=== PATIENT | male | born 1960 | race Caucasian/White ===

== ENCOUNTER 2017-06-22 12:36 | Inpatient (IN) | payer OTHER ==
[~2017-06-22] VITALS: Ht 154.9 cm; Wt 59.9 kg
[2017-06-22 14:00] VITALS: BP 131/83; RESP 18
[2017-06-22 14:07] VITALS: Ht 154.9 cm; Wt 59.9 kg
--- NOTE | 2017-06-22 15:06 | HP ---
Date/Time of Note Date/Time of Note DATE: 06/22/17 TIME: 15:06 Assessment/Plan VTE Prophylaxis VTE Prophylaxis Intervention: SCD's Lines/Catheters IV Catheter Type (from Nrsg): Saline Lock Assessment/Plan Assessment/Plan 1. RUQ pain secondary to ?acalculous cholecystitis - US showed thickened gallbladder wall 9mm without presence of stones - Will consult Surgery for further evaluation - HIDA scan ordered with CCK. Will not be able to be performed until tmrw per nuclear medicine - Blood cultures drawn and will start Zosyn following BC - Zofran PRN nausea - Pain control - IVF and will keep NPO after midnight for HIDA scan 2. Transaminitis - May be secondary to dehydration - Will continue to monitor 3. Constipation - Will give stool softeners and monitor for BM 4. Tobacco abuse - Patient states has not smoked in 2 weeks but usually 1/2 ppd 5. Diet - clears - NPO after midnight 6. GI ppx - PPI 7. DVT ppx - SCD 8. Code status - Full 9. Disposition - Admit to med/surg for further evaluation HPI/ROS Admit Date/Time Admit Date/Time Jun 22, 2017 at 13:30 Hx of Present Illness 56 yo M with no significant past medical history presented to [place] [facility] due to abdominal pain for the past 4 days. Patients states he has been experiencing moderate RUQ pain that radiates to epigastric area with associated nausea with no vomiting. Patient states when pain is severe experiences shortness of breath but normally does not have any respiratory issues. Has also had diminished appetite and lost 3 lbs in 4 days. C/o constipation as well for the past 4 days but usually has regular bowel movements. US RUQ performed at [place] showed thickened gallbladder without stones without Ramirez sign as well. Denies any dizziness, headache, vomiting, chest pain, diarrhea, or past history of abdominal issues. ROS Constitutional: fatigue, nausea, poor po, weight change, No diaphoresis, No febrile Eyes: no complaints ENT: no complaints Respiratory: shortness of breath (with abdominal pain), No cough, No sputum, No wheezing Cardiovascular: No chest pain, No edema, No lightheadedness, No palpitations Gastrointestinal: constipation, decreased appetite, nausea, pain, No blood, No diarrhea, No vomiting Genitourinary: no complaints Musculoskeletal: no complaints Skin: No erythema, No pruritis, No rash Neurologic: no complaints Endocrine: no complaints Lymphatic: no complaints Psychological: no complaints Immunologic: no complaints PMH/Family/Social Past Medical History Medical History: no pertinent history Past Surgical History Past Surgical Hx: no surgical history Family History Significant Family History: no pertinent family hx Social History Alcohol Use: none Smoking Status: Current every day smoker Drug Use: none Exam/Review of Systems Vital Signs Vitals Vital Signs Date Time Temp Pulse Resp B/P Pulse Ox O2 Delivery O2 Flow Rate FiO2 06/22/17 14:00 97.5 101 18 131/83 95 Exam Constitutional: alert, oriented, well developed Psych: nl mood/affect Head: atraumatic, normocephalic Eyes: EOMI, PERRL, nl sclera ENMT: mucosa pink and moist Neck: non-tender, supple Respiratory: clear to auscultation, No crackles/rales, No wheezing Cardiovascular: regular rate and rhythm, No diastolic murmur, No edema, No murmurs/extra sounds, No systolic murmur Gastrointestinal: bowel sounds, nl liver, spleen, soft, tender (RUQ with deep palpation, epigastric area), No ascites, No distended, No rebound or guarding Genitourinary - Male: No CVA tenderness, No discharge Musculoskeletal: nl extremities to inspection Extremities: normal pulses, No cyanosis, No edema Neurological: HEALTH COACH II-XII intact, nl mental status, nl speech, nl strength Skin: other (skin tenting) Lymph: nl lymph nodes Medications Medications No home medications Procedures Procedures US Abdomen- Thickened gallbladder wall without evidence of stones and with a negative sonographic ramirez sign. rule out acalculous cholecystitis with HIDA. Right pleural effusion LABS from [facility] WBC 7.6 Hgb 13 Hct 41 Plt 128 Na 138 K 4.7 Cl 103 Co2 22 BUN 31 Cr 1.04 Glu 121 Tbil 0.8 Alk phos 103 AST 56 ALT 77 JAREN SOUZA MD Jun 22, 2017 15:06
[2017-06-22] MEDS ORDERED: MAGNESIUM HYDROXIDE 30ML CUP PO PRN (15:30)
[2017-06-22] MEDS ORDERED: ONDANSETRON 4 MG INJ IV PRN (15:30)
[2017-06-22] MEDS ORDERED: morphine 2 MG INJ IV PRN (15:30)
[2017-06-22] MEDS ORDERED: HYDROCODONE/APAP (5/325) TAB PO PRN (15:30)
[2017-06-22] MEDS ORDERED: NACL 0.9% 3 ML SYG IV SCH (15:30)
[2017-06-22] MEDS ORDERED: DOCUSATE SODIUM 100 MG CAP PO PRN (15:30)
[2017-06-22] MEDS ORDERED: ACETAMINOPHEN 325 MG TAB PO PRN (15:30)
[2017-06-22] MEDS: SOD CHLORIDE 0.9% 1,000 ML IV SCH (16:31)
--- NOTE | 2017-06-22 17:26 | CONS ---
Date/Time of Note Date/Time of Note DATE: 06/22/17 TIME: 17:23 Assessment/Plan Assessment/Plan Additional Assessment/Plan Possible acalculous cholecystitis CCK HIDA scan has been ordered and will be performed tomorrow Further recommendations will be forthcoming and based on the patient's further workup and clinical course. Consultation Date/Type/Reason Admit Date/Time Jun 22, 2017 at 13:30 Date of Consultation: Jun 22, 2017 Reason for Consultation Possible acalculous cholecystitis Hx of Present Illness The patient is an otherwise healthy 56-year-old male with no familial history of gallbladder disease. He is admitted with 3-4 day history of intermittent midepigastric and right upper quadrant abdominal pain and abdominal ultrasound performed in [place] showed a thickened gallbladder wall but without gallstones or pericholecystic fluid. HIDA scan was recommended. The patient is transferred here for continuance of care. He has had no fevers or chills. He states that his abdominal pain has completely resolved. Constitutional: no complaints Eyes: no complaints ENT: no complaints Respiratory: no complaints, shortness of breath (with abdominal pain), No cough, No sputum, No wheezing Cardiovascular: no complaints, No chest pain, No edema, No lightheadedness, No palpitations Gastrointestinal: constipation, decreased appetite, nausea, no complaints, pain , No blood, No diarrhea, No vomiting Genitourinary: no complaints Musculoskeletal: no complaints Skin: No erythema, No pruritis, No rash Neurologic: no complaints Lymphatic: no complaints Psychological: nl mood/affect, no complaints Immunologic: no complaints Past Medical History Medical History: no pertinent history Past Surgical History Past Surgical Hx: no surgical history Family History Significant Family History: no pertinent family hx Social History Alcohol Use: none Smoking Status: Current every day smoker Drug Use: none Exam/Review of Systems Vital Signs Vitals Vital Signs Date Time Temp Pulse Resp B/P Pulse Ox O2 Delivery O2 Flow Rate FiO2 06/22/17 14:00 97.5 101 18 131/83 95 Exam Constitutional: alert, oriented Psych: no complaints Head: normocephalic Eyes: nl conjunctiva ENMT: nl external ears & nose Neck: supple Respiratory: clear to auscultation Cardiovascular: regular rate and rhythm Gastrointestinal: soft Genitourinary - Male: nl penis Musculoskeletal: nl extremities to inspection Extremities: normal pulses Neurological: FINANCE ASSISTANT II-XII intact Skin: nl turgor Lymph: nl lymph nodes Medications Medications Current Medications Sodium Chloride (NS) 1,000 ml @ 100 mls/hr Q10H IV Last administered on t 16:31; Admin Dose 100 MLS/HR; Start 06/22/17 at 15:27 Ondansetron HCl (Zofran Inj) 4 mg Q6H PRN IV NAUSEA AND/OR VOMITING; Start at 15:30 Acetaminophen (Tylenol Tab) 650 mg Q6H PRN PO PAIN LEVEL 1-3 OR FEVER; Start 06/22/17 at 15:30 Acetaminophen/ Hydrocodone Bitart ([place] (5/325)) 1 tab Q6H PRN PO MODERATE PAIN LEVEL 4-6; Start 06/22/17 at 15:30 Morphine Sulfate (morphine) 2 mg Q4H PRN IV SEVERE PAIN LEVEL 7-10; Start at 15:30 Docusate Sodium (Colace) 100 mg Q12H PRN PO CONSTIPATION; Start 06/22/17 at 15 :30 Magnesium Hydroxide (Milk Of Mag) 30 ml DAILY PRN PO CONSTIPATION; Start 06/22 at 15:30 Pantoprazole 40 mg 40 mg DAILY@06 PO ; Start 06/23/17 at 06:00 Piperacillin Sod/ Tazobactam Sod (Zosyn 3.375gm/ 100 ml (Pmx)) 100 ml @ 200 mls /hr Q6 IVPB ; Start 06/22/17 at 18:00 ROSE RADFORD MD Jun 22, 2017 17:26
[2017-06-22] MEDS: PIPER-TAZO 3.375 GM IV (PMX) 100 ML IVPB SCH ×2 (18:31→23:22)
[2017-06-22 19:51] VITALS: BP 135/89; RESP 18
[2017-06-23] MEDS: SOD CHLORIDE 0.9% 1,000 ML IV SCH ×4 (01:27→17:34)
[2017-06-23 01:57] VITALS: BP 109/66; RESP 18
[2017-06-23] MEDS: PIPER-TAZO 3.375 GM IV (PMX) 100 ML IVPB SCH ×4 (05:21→23:39)
[2017-06-23] MEDS: PANTOPRAZOLE (EC) 40 MG TAB PO SCH ×2 (05:21→06:00)
[2017-06-23 07:18] VITALS: BP 131/87; RESP 18
--- NOTE | 2017-06-23 12:36 | PN ---
Date/Time of Note Date/Time of Note DATE: 06/23/17 TIME: 12:28 Assessment/Plan VTE Prophylaxis VTE Prophylaxis Intervention: SCD's Lines/Catheters IV Catheter Type (from Nrsg): Peripheral IV Assessment/Plan Assessment/Plan 1. Abdominal pain, consider acalculous cholecystitis, on antibiotics, protonix follow up with surgeon Dr. Hill 2. Mild transaminitis, follow up with LFTs 3. DVT prophylaxis: SCD Exam/Review of Systems Vital Signs Vitals Vital Signs Date Time Temp Pulse Resp B/P Pulse Ox O2 Delivery O2 Flow Rate FiO2 06/23/17 07:18 98.1 89 18 131/87 91 Intake and Output 06/22/17 06/22/17 06/23/17 15:00 23:00 07:00 Intake Total 250 ml 1340 ml Output Total 150 ml Balance 250 ml 1190 ml Exam Constitutional: alert, oriented, well developed Psych: nl mood/affect, no complaints Head: atraumatic, normocephalic Eyes: EOMI, nl conjunctiva, nl lids ENMT: nl external ears & nose, nl lips & teeth, nl nasal mucosa & septum Neck: non-tender, supple Respiratory: clear to auscultation, normal air movement, No congested cough, No crackles/rales, No diminished breath sounds, No intercostal retraction, No labored breathing, No other, No respirations, No tactile fremitus, No wheezing Cardiovascular: nl pulses, regular rate and rhythm, No S3, No S4, No bruits, No diastolic murmur, No edema, No gallop, No irregular rhythm, No jugular venous distention (JVD), No murmurs/extra sounds, No other, No rub, No systolic murmur Gastrointestinal: nl liver, spleen, other (epigastric tenderness), soft Musculoskeletal: nl extremities to inspection Extremities: normal pulses, No calf tenderness, No clubbing, No cyanosis, No edema, No other, No palpable cord, No pitting pedal edema, No tenderness Neurological: OUTSIDE SALES ACCOUNT EXECUTIVE II-XII intact, nl mental status, nl speech Skin: nl turgor Lymph: nl lymph nodes Results Result Diagram: 06/23/17 0552 06/23/17 0552 Results 24 hrs Laboratory Tests Test 06/23/17 05:52 White Blood Count 7.4 Red Blood Count 5.06 Hemoglobin 11.8 L Hematocrit 37.7 L Mean Corpuscular Volume 74.5 L Mean Corpuscular Hemoglobin 23.3 L Mean Corpuscular Hemoglobin Concent 31.3 L Red Cell Distribution Width 14.5 Platelet Count 127 L Mean Platelet Volume 11.4 H Neutrophils % 52.0 Lymphocytes % 30.1 Monocytes % 15.7 H Eosinophils % 0.9 Basophils % 0.9 Nucleated Red Blood Cells % 0.0 Neutrophils # 3.9 Lymphocytes # 2.2 Monocytes # 1.2 H Eosinophils # 0.1 Basophils # 0.1 Nucleated Red Blood Cells # 0.0 Sodium Level 139 Potassium Level 4.4 Chloride Level 110 Carbon Dioxide Level 21 Anion Gap 12 Blood Urea Nitrogen 28 H Creatinine 1.20 Glucose Level 68 L Calcium Level 8.0 L Magnesium Level 1.8 Total Bilirubin 1.1 Direct Bilirubin 0.00 Indirect Bilirubin 1.1 Aspartate Amino Transf (AST/SGOT) 67 H Alanine Aminotransferase (ALT/SGPT) 106 H Alkaline Phosphatase 84 Total Protein 5.8 L Albumin 2.9 L Globulin 2.90 Albumin/Globulin Ratio 1.00 Thyroid Stimulating Hormone (TSH) 0.857 Medications Medications Current Medications Sodium Chloride (NS) 1,000 ml @ 100 mls/hr Q10H IV Last administered on t 03:25; Admin Dose 100 MLS/HR; Start 06/22/17 at 15:27 Ondansetron HCl (Zofran Inj) 4 mg Q6H PRN IV NAUSEA AND/OR VOMITING; Start at 15:30 Acetaminophen (Tylenol Tab) 650 mg Q6H PRN PO PAIN LEVEL 1-3 OR FEVER; Start 06/22/17 at 15:30 Acetaminophen/ Hydrocodone Bitart ([place] (5/325)) 1 tab Q6H PRN PO MODERATE PAIN LEVEL 4-6; Start 06/22/17 at 15:30 Morphine Sulfate (morphine) 2 mg Q4H PRN IV SEVERE PAIN LEVEL 7-10; Start at 15:30 Docusate Sodium (Colace) 100 mg Q12H PRN PO CONSTIPATION; Start 06/22/17 at 15 :30 Magnesium Hydroxide (Milk Of Mag) 30 ml DAILY PRN PO CONSTIPATION; Start 06/22 at 15:30 Pantoprazole 40 mg 40 mg DAILY@06 PO ; Start 06/23/17 at 06:00 Piperacillin Sod/ Tazobactam Sod (Zosyn 3.375gm/ 100 ml (Pmx)) 100 ml @ 200 mls /hr Q6 IVPB Last administered on 06/23/17t 12:04; Admin Dose 200 MLS/HR; Start 06/22/17 at 18:00 RADHA VALENTIN MD Jun 23, 2017 12:36
[2017-06-23 13:45] VITALS: BP 125/80; RESP 18
--- NOTE | 2017-06-23 14:16 | PN ---
Date/Time of Note Date/Time of Note DATE: 06/23/17 TIME: 14:15 Assessment/Plan Lines/Catheters IV [facility] Type (from [facility]): Peripheral IV Assessment/Plan Chief Complaint/Hosp Course The patient is an otherwise healthy 56-year-old male with no familial history of gallbladder disease. He is admitted with 3-4 day history of intermittent midepigastric and right upper quadrant abdominal pain and abdominal ultrasound performed in [place] showed a thickened gallbladder wall but without gallstones or pericholecystic fluid. HIDA scan was recommended. The patient is transferred here for continuance of care. He has had no fevers or chills. He states that his abdominal pain has completely resolved. Problems: Assessment/Plan Abdominal examination is benign Awaiting CCK HIDA scan Subjective 24 Hr Interval Summary Patient continues to be asymptomatic without leukocytosis Exam/Review of Systems Vital Signs Vitals Vital Signs Date Time Temp Pulse Resp B/P Pulse Ox O2 Delivery O2 Flow Rate FiO2 06/23/17 13:45 98.3 90 18 125/80 97 Intake and Output 06/22/17 06/22/17 06/23/17 15:00 23:00 07:00 Intake Total 250 ml 1340 ml Output Total 150 ml Balance 250 ml 1190 ml Results Result Diagram: 06/23/17 0552 06/23/17 0552 ROSE RADFORD MD Jun 23, 2017 14:16
--- NOTE | 2017-06-23 16:29 | RADRPT ---
PROCEDURE: HIDA scan CLINICAL INDICATION: 56 -year-old patient complaining of abdominal pain. TECHNIQUE: Following the intravenous injection of 8.1 mCi of Tc-99m mebrofenin, multiple images of the abdomen were obtained up to 60-minutes post injection. COMPARISON: No prior HIDA scans. FINDINGS: The liver is promptly visualized, demonstrates homogeneous distribution of radionuclide. There is visualization of the common bile duct, gallbladder and gastrointestinal activity within nor mal time. IMPRESSION: No scintigraphic evidence to suggest the presence of common bile or cystic ducts obstruction. RPTAT: HH Physician Bernarda Date Time Electronically viewed and signed by Physician Bernarda on 06/23/2017 16:28 /
[2017-06-23 19:55] VITALS: BP 121/88; RESP 20
[2017-06-24 01:22] VITALS: BP 130/87; RESP 20
[2017-06-24] MEDS: SOD CHLORIDE 0.9% 1,000 ML IV SCH (05:30)
[2017-06-24] MEDS: PIPER-TAZO 3.375 GM IV (PMX) 100 ML IVPB SCH (05:30)
[2017-06-24] MEDS: PANTOPRAZOLE (EC) 40 MG TAB PO SCH (05:30)
[2017-06-24 07:31] VITALS: BP 145/96; RESP 20
--- NOTE | 2017-06-24 07:34 | PN ---
Date/Time of Note Date/Time of Note DATE: 06/24/17 TIME: 07:33 Assessment/Plan Lines/Catheters IV C[facility]ter Type (from [facility]): Peripheral IV Assessment/Plan Chief Complaint/Hosp Course The patient is an otherwise healthy 56-year-old male with no familial history of gallbladder disease. He is admitted with 3-4 day history of intermittent midepigastric and right upper quadrant abdominal pain and abdominal ultrasound performed in [place] showed a thickened gallbladder wall but without gallstones or pericholecystic fluid. HIDA scan was recommended. The patient is transferred here for continuance of care. He has had no fevers or chills. He states that his abdominal pain has completely resolved. Problems: Assessment/Plan HIDA scan was performed yesterday but without CCK, was normal Plan: Regular diet. Can discharge Subjective 24 Hr Interval Summary Patient remains asymptomatic with benign abdominal examination Exam/Review of Systems Vital Signs Vitals Vital Signs Date Time Temp Pulse Resp B/P Pulse Ox O2 Delivery O2 Flow Rate FiO2 06/24/17 07:31 98.1 86 20 145/96 98 Intake and Output 06/23/17 06/23/17 06/24/17 15:00 23:00 07:00 Intake Total 710 ml 200 ml 1200 ml Output Total 22 ml 400 ml Balance 710 ml 178 ml 800 ml Results Result Diagram: 06/24/17 0506 06/24/17 0506 ROSE RADFORD MD Jun 24, 2017 07:34
--- NOTE | 2017-06-24 11:56 | PDOCDIS ---
Discharge Instructions CONDITION Patient Condition: Good HOME CARE INSTRUCTIONS: Special Diet: regular diet- low fat ACTIVITY: Activity Restrictions: Slowly Increase Activity Rest between Activity Avoid heavy lifting Avoid Heavy Housework FOLLOW UP/APPOINTMENTS Follow-up Plan Follow up with his own PMD through HMO insurance in 1- 2 week after discharge CORDELIA ALATORRE MD Jun 24, 2017 11:56
[2017-06-24] MEDS ORDERED: IBUP-1542 PO (11:57)
[2017-06-24] MEDS ORDERED: FAMO-96 PO (11:57)
[2017-06-24] MEDS ORDERED: METO10TA92 PO (11:57)
[2017-06-24 12:53] VITALS: BP 130/87; RESP 16
[2017-06-24] MEDS ORDERED: PIPER-TAZO 3.375 GM IV (PMX) 50 ML IVPB SCH (18:00)
--- NOTE | 2017-06-25 09:41 | DS ---
Date/Time of Note Date/Time of Note DATE: 06/25/17 TIME: 09:41 Discharge Summary Admission/Discharge Info Admit Date/Time Jun 22, 2017 at 13:30 Discharge Date/Time Jun 24, 2017 at 17:00 Hx of Present Illness 56 yo M with no significant past medical history presented to [place] [facility] due to abdominal pain for the past 4 days. Patients states he has been experiencing moderate RUQ pain that radiates to epigastric area with associated nausea with no vomiting. Patient states when pain is severe experiences shortness of breath but normally does not have any respiratory issues. Has also had diminished appetite and lost 3 lbs in 4 days. C/o constipation as well for the past 4 days but usually has regular bowel movements. US RUQ performed at [place] showed thickened gallbladder without stones without Ramirez sign as well. Denies any dizziness, headache, vomiting, chest pain, diarrhea, or past history of abdominal issues. Hospital Course The patient is an otherwise healthy 56-year-old male with no familial history of gallbladder disease. He is admitted with 3-4 day history of intermittent midepigastric and right upper quadrant abdominal pain and abdominal ultrasound performed in [place] showed a thickened gallbladder wall but without gallstones or pericholecystic fluid. HIDA scan was recommended. The patient is transferred here for continuance of care. He has had no fevers or chills. He states that his abdominal pain has completely resolved. Home Meds Active Scripts Famotidine* (Pepcid*) 20 Mg Tablet, 20 MG PO BID, #60 TAB Prov:CORDELIA ALATORRE MD 06/24/17 Metoclopramide* (Reglan*) 10 Mg Tablet, 10 MG PO Q6H Y for NAUSEA AND OR VOMITING, #30 TAB Prov:CORDELIA ALATORRE MD 06/24/17 Ibuprofen* (Ibuprofen*) 600 Mg Tablet, 600 MG PO Q6 for pain, fever, #30 TAB Prov:CORDELIA ALATORRE MD 06/24/17 Follow-up Plan Follow up with his own PMD through HMO insurance in 1- 2 week after discharge Primary Care Provider Not On Staff Doctor CORDELIA ALATORRE MD Jun 25, 2017 09:41
== END 2017-06-24 17:00 | disposition home or self-care (01) | DRG 446 ==
LOC: MS2 13:30
PROVIDERS: ADMIT Internal Medicine; ATTEND Internal Medicine
DX: K81.9 Cholecystitis, unspecified (principal); F17.200 Nicotine dependence, unspecified, uncomplicated; R74.0 Nonspecific elevation of levels of transaminase and lactic acid dehydrogenase [LDH]; K82.9 Disease of gallbladder, unspecified; K59.00 Constipation, unspecified
CPT/HCPCS: 78226; 80053; 80069; 83735; 84443; 85025; 87040; A9537; J2543; J7030

== ENCOUNTER 2017-07-02 21:24 | Inpatient (IN) | payer OTHER ==
[~2017-07-02] VITALS: Ht 162.6 cm; Wt 61.8 kg
[~2017-07-02 21:24] MED LIST: FAMO-96 PO; IBUP-1542 PO; METO10TA92 PO
[2017-07-02 21:34] VITALS: Ht 162.6 cm; Wt 61.8 kg
[2017-07-02] MEDS ORDERED: ASPIRIN 325 MG TAB PO STA (21:58)
[2017-07-02 22:25] LABS: ABNORMAL IP MESSAGE 1; BASOPHIL # 0.1 10^3/ul (0.0-0.1); BASOPHILS % 0.5 % (0.0-2.0); EOSINOPHILS # 0.1 10^3/ul (0.0-0.5); EOSINOPHILS % 0.5 % (0.0-7.0); HEMATOCRIT 39.8 % (42.0-52.0); HEMOGLOBIN 12.9 g/dl (14.0-18.0); LYMPHOCYTES # 2.7 10^3/ul (0.8-2.9); LYMPHOCYTES % 27.3 % (15.0-51.0); MEAN CORPUSCULAR HEMOGLOBIN 23.6 pg (29.0-33.0); MEAN CORPUSCULAR HGB CONC 32.4 g/dl (32.0-37.0); MEAN CORPUSCULAR VOLUME 72.8 fl (82.0-101.0); MONOCYTE # 1.8 10^3/ul (0.3-0.9); MONOCYTES % 18.1 % (0.0-11.0); NEUTROPHIL # 5.2 10^3/ul (1.6-7.5); NEUTROPHILS % 53.4 % (39.0-77.0); NUCLEATED RED BLOOD CELLS # 0.1 10^3/ul (0.0-0.0); NUCLEATED RED BLOOD CELLS% 0.5 /100WBC (0.0-0.0); PLATELET COUNT 104 10^3/UL (140-415); POSITIVE DIFF @See below; RED BLOOD COUNT 5.47 10^6/ul (4.70-6.10); RED CELL DISTRIBUTION WIDTH 13.8 % (11.5-14.5); WHITE BLOOD COUNT 9.8 10^3/ul (4.8-10.8)
--- NOTE | 2017-07-02 22:25 | RADRPT ---
PROCEDURE: XR Chest. CLINICAL INDICATION: Chest pain, shortness of breath, cough. TECHNIQUE: Single frontal view of the chest was obtained COMPARISON: None FINDINGS: There is cardiomegaly. Aortic calcifications are present. The lungs are clear with no focal consolidations, pleural effusions, or pneumothorax. The osseous structures are grossly unremarkable. IMPRESSION: 1. Cardiomegaly with no acute cardiopulmonary disease. RPTAT:AAJJ Physician Nicko Date Time Electronically viewed and signed by Tayler Perez Physician on 07/02/2017 22:24 QL/
[2017-07-02 22:54] LABS: CALCIUM 8.3 mg/dl (8.4-10.2); CREATININE 1.25 mg/dl (0.61-1.24); POTASSIUM 5.2 mmol/L (3.5-5.1)
[2017-07-02 23:05] LABS: TROPONIN-I 0.024 ng/ml (0.00-0.12)
[2017-07-03] VITALS (12 sets, daily range): BP systolic 128–136; BP diastolic 70–92; PULSE 82–102; RESP 18; TEMP 98.3
[2017-07-03] MEDS ORDERED: ONDANSETRON 4 MG INJ IV PRN (01:00)
[2017-07-03] MEDS ORDERED: ACETAMINOPHEN 325 MG TAB PO PRN (01:00)
[2017-07-03] MEDS ORDERED: FUROSEMIDE 40 MG INJ IV ONE (01:00)
--- NOTE | 2017-07-03 01:37 | ERD ---
ER Documentation Chief Complaint Chief Complaint SOB and CP for 4 days, denies medical problem HPI 56-year-old male presents with increasing shortness of breath on exertion for the last 4 days but is now shortness of breath at rest as well. He had chest pain yesterday on the left side of his chest for a few hours which is now resolved. Denies having any other medical problems. Denies fever chills and cough. ROS All systems reviewed and are negative except as per history of present illness. Medications Home Meds Discontinued Scripts Famotidine* (Pepcid*) 20 Mg Tablet, 20 MG PO BID, #60 TAB Prov:CORDELIA ALATORRE MD 06/24/17 Metoclopramide* (Reglan*) 10 Mg Tablet, 10 MG PO Q6H Y for NAUSEA AND OR VOMITING, #30 TAB Prov:CORDELIA ALATORRE MD 06/24/17 Ibuprofen* (Ibuprofen*) 600 Mg Tablet, 600 MG PO Q6 for pain, fever, #30 TAB Prov:CORDELIA ALATORRE MD 06/24/17 Allergies Allergies: Coded Allergies: No Known Allergy (Unverified , 07/02/17) PMhx/Soc History of Surgery: No Anesthesia Reaction: No (unknown) Hx Neurological Disorder: No Hx Respiratory Disorders: No Hx Cardiac Disorders: No Hx Psychiatric Problems: No Hx Miscellaneous Medical Probl: No Hx Alcohol Use: No Hx Substance Use: No Hx Tobacco Use: Yes Smoking Status: Current every day smoker Physical Exam Vitals Vital Signs Date Time Temp Pulse Resp B/P Pulse Ox O2 Delivery O2 Flow Rate FiO2 07/02/17 22:00 98.3 100 20 135/95 99 Room Air 07/02/17 21:34 98.3 99 20 125/91 99 Physical Exam Const: [] Mild distress, appears uncomfortable and short of breath Head: Atraumatic Eyes: Normal Conjunctiva ENT: Normal External Ears, Nose and Mouth. Neck: Full range of motion..~ No meningismus. Resp: Clear to auscultation bilaterally every appears to have very mild labored work of breathing Cardio: Regular rate and rhythm, no murmurs Abd: Soft, non tender, non distended. Normal bowel sounds Skin: No petechiae or rashes Back: No midline or flank tenderness Ext: No cyanosis, 1+ pitting edema bilateral ankles and shins, distal pulses intact Neur: Awake and alert 3, no focal deficits Psych: Normal Mood and Affect Result Diagram: 07/02/17220407/02/172204 Results 24 hrs Laboratory Tests Test 07/02/17 22:05 White Blood Count 9.810^3/ul Red Blood Count 5.4710^6/ul Hemoglobin 12.9g/dl Hematocrit 39.8% Mean Corpuscular Volume 72.8fl Mean Corpuscular Hemoglobin 23.6pg Mean Corpuscular Hemoglobin Concent 32.4g/dl Red Cell Distribution Width 13.8% Platelet Count 55733^3/UL Mean Platelet Volume 12.0fl Neutrophils % 53.4% Lymphocytes % 27.3% Monocytes % 18.1% Eosinophils % 0.5% Basophils % 0.5% Nucleated Red Blood Cells % 0.5/100WBC Neutrophils # 5.210^3/ul Lymphocytes # 2.710^3/ul Monocytes # 1.810^3/ul Eosinophils # 0.110^3/ul Basophils # 0.110^3/ul Nucleated Red Blood Cells # 0.110^3/ul Sodium Level 137mmol/L Potassium Level 5.2mmol/L Chloride Level 103mmol/L Carbon Dioxide Level 23mmol/L Anion Gap 16 Blood Urea Nitrogen 31mg/dl Creatinine 1.25mg/dl Glucose Level 94mg/dl Calcium Level 8.3mg/dl Troponin I 0.024ng/ml B-Type Natriuretic Peptide 31375QA/ML Current Medications Medications (Trade) Dose Ordered Sig/Priya Route PRN Reason Start Time Stop Time Status Last Admin Dose Admin Aspirin (Aspirin) 325 mg ONCE STAT PO 07/02/17 21:58 07/02/17 22:00 DC 07/02/17 22:26 Furosemide (Lasix) 40 mg ONCE ONCE IV 07/03/17 01:00 07/03/17 01:01 DC 07/03/17 01:24 Ondansetron HCl (Zofran Inj) 4 mg ER BRIDGE PRN IV NAUSEA AND/OR VOMITING 07/03/17 01:00 07/04/17 00:59 Acetaminophen (Tylenol Tab) 650 mg ER BRIDGE PRN PO MILD PAIN/FEVER 07/03/17 01:00 07/04/17 00:59 Procedures/MDM New diagnosis of congestive heart failure. Patient has a very high BNP with no history of congestive heart failure. Also has renal insufficiency with mild hyperkalemia. Was given Lasix 40 mg in the emergency room after which said his breathing did improve. He was also put on oxygen which he said helped with his breathing. No elevated troponin to suggest myocardial injury currently. Because of micro-acidic anemia with no history of GI bleeding. Will be admitted for echocardiogram and treatment of congestive heart failure as well as formulation of an outpatient regimen and plan to control his heart failure. Was also given aspirin 325 mg. is admitting EKG interpretation: Normal sinus rhythm with no ST elevations or depressions concerning for acute ischemia, no emergently concerning intervals p media manager interpretation: Normal sinus rhythm without arrhythmia Chest x-ray interpretation: Cardiomegaly without any other acute process that I can see. I see no infiltrates, no pulmonary edema, no pneumothorax, no fractures Departure Diagnosis: Primary Impression: Acute CHF Additional Impressions: Chest pain Renal insufficiency Hyperkalemia Microcytic anemia Thrombocytopenia Condition: Serious CHENTE WHEAT DO Jul 03, 2017 01:37
--- NOTE | 2017-07-03 08:48 | HP ---
Date/Time of Note Date/Time of Note DATE: 07/03/17 TIME: 08:46 Assessment/Plan VTE Prophylaxis VTE Prophylaxis Intervention: SCD's Lines/Catheters IV Catheter Type (from Nrsg): Peripheral IV Assessment/Plan Assessment/Plan 1. Shortness of breath, most likely secondary to CHF -will check a 2D echo, BNP 19,000 -His symptoms have resolved and patient looks comfortable and there is no sign of volume overload 2. Presumed AK I -Check a.m. lab -If worsens or no improvement. Will consider further workup including renal ultrasound and nephrology consult -Avoid nephrotoxins as much as possible 3. Chest pain, resolved -First troponin is negative and EKG with no ST-T wave abnormalities -Trend troponin -2D echo HPI/ROS Admit Date/Time Admit Date/Time Jul 03, 2017 at 00:39 Hx of Present Illness This is a 56-year-old male with no past medical history who presented to the emergency department complaining of shortness of breath and chest pain. He stated shortness of breath started a few days ago and a chest pain which was left-sided started yesterday. Both symptoms have resolved now. Chest pain was described as sharp, nonradiating with no associated nausea vomiting or diaphoresis. When he presented to the ER vitals were stable. Labs shows BUN of 31 and creatinine 1.29 and a BNP 19,000. Chest x-ray shows cardiomegaly otherwise no acute findings PMH/Family/Social Past Surgical History Past Surgical Hx: no surgical history Social History Smoking Status: Current every day smoker Exam/Review of Systems Vital Signs Vitals Vital Signs Date Time Temp Pulse Resp B/P Pulse Ox O2 Delivery O2 Flow Rate FiO2 07/03/17 08:21 98.1 86 18 133/92 98 07/03/17 00:30 Room Air Intake and Output 07/02/17 07/02/17 07/03/17 15:00 23:00 07:00 Intake Total 0 ml Balance 0 ml Exam Constitutional: alert, oriented, well developed Head: atraumatic, normocephalic Eyes: EOMI, PERRL Respiratory: clear to auscultation, normal air movement Cardiovascular: nl pulses, regular rate and rhythm Gastrointestinal: non-tender, soft Extremities: normal pulses Labs Result Diagram: 07/02/17220407/02/172204 SADI ALEJO MD Jul 03, 2017 08:48
[2017-07-03 08:49] LABS: TROPONIN-I 0.022 ng/ml (0.00-0.12)
[2017-07-03 08:59] LABS: CK-MB 3.8 ng/ml (0.0-2.4)
[2017-07-03 11:31] LABS: TROPONIN-I 0.018 ng/ml (0.00-0.12)
[2017-07-03 11:42] LABS: CK-MB 3.12 ng/ml (0.0-2.4)
[2017-07-03 13:56] LABS: CALCIUM 8.3 mg/dl (8.4-10.2); CREATININE 1.15 mg/dl (0.61-1.24); MAGNESIUM 1.8 mg/dl (1.7-2.5); POTASSIUM 3.7 mmol/L (3.5-5.1)
[2017-07-03] MEDS: ASPIRIN (EC) 81 MG TAB PO SCH (14:23)
[2017-07-03] MEDS: FUROSEMIDE 20 MG INJ IV SCH (14:24)
[2017-07-04] VITALS (12 sets, daily range): BP systolic 121–140; BP diastolic 77–88; PULSE 77–94; RESP 18–19
[2017-07-04] MEDS: FUROSEMIDE 20 MG INJ IV SCH ×2 (05:52→17:16)
[2017-07-04 07:29] LABS: BASOPHIL # 0.1 10^3/ul (0.0-0.1); BASOPHILS % 0.5 % (0.0-2.0); EOSINOPHILS # 0.2 10^3/ul (0.0-0.5); EOSINOPHILS % 2.5 % (0.0-7.0); HEMATOCRIT 43.2 % (42.0-52.0); HEMOGLOBIN 13.9 g/dl (14.0-18.0); LYMPHOCYTES # 2.3 10^3/ul (0.8-2.9); LYMPHOCYTES % 23.6 % (15.0-51.0); MEAN CORPUSCULAR HEMOGLOBIN 23.1 pg (29.0-33.0); MEAN CORPUSCULAR HGB CONC 32.2 g/dl (32.0-37.0); MEAN CORPUSCULAR VOLUME 71.9 fl (82.0-101.0); MEAN PLATELET VOLUME 11.4 fl (7.4-10.4); MONOCYTE # 1.3 10^3/ul (0.3-0.9); MONOCYTES % 13.4 % (0.0-11.0); NEUTROPHIL # 5.7 10^3/ul (1.6-7.5); NEUTROPHILS % 59.8 % (39.0-77.0); PLATELET COUNT 121 10^3/UL (140-415); RED BLOOD COUNT 6.01 10^6/ul (4.70-6.10); RED CELL DISTRIBUTION WIDTH 13.6 % (11.5-14.5); WHITE BLOOD COUNT 9.6 10^3/ul (4.8-10.8)
[2017-07-04 08:10] LABS: ALBUMIN 2.9 g/dl (3.3-4.9); ALBUMIN/GLOBULIN RATIO 0.9; BILIRUBIN,INDIRECT 1.3 mg/dl (0-1.1); BILIRUBIN,TOTAL 1.3 mg/dl (0.2-1.3); CALCIUM 8.2 mg/dl (8.4-10.2); TOTAL PROTEIN 6.1 g/dl (6.1-8.1)
[2017-07-04 08:11] LABS: CHOL/HDL RATIO 5.5 RATIO; MAGNESIUM 1.7 mg/dl (1.7-2.5); PHOSPHORUS 3.6 mg/dl (2.5-4.9)
[2017-07-04 08:18] LABS: TROPONIN-I 0.023 ng/ml (0.00-0.12)
[2017-07-04] MEDS: ASPIRIN (EC) 81 MG TAB PO SCH (08:35)
[2017-07-04 08:37] LABS: THYROID STIMULATING HORMONE 1.24 MIU/L (0.465-4.680)
[2017-07-04 08:41] LABS: POTASSIUM 3.6 mmol/L (3.5-5.1)
--- NOTE | 2017-07-04 09:26 | RADRPT ---
PROCEDURE: XR Chest. CLINICAL INDICATION: Shortness of breath TECHNIQUE: Single AP view of the chest was obtained COMPARISON: 07/02/2017 FINDINGS: Lungs are clear. Cardiomegaly with aortic atherosclerosis. No acute osseous abnormality RPTAT: AA IMPRESSION: Stable cardiomegaly. No acute pulmonary disease. Franky Pearce Physician Date Time Electronically viewed and signed by Franky Pearce Physician on 07/04/2017 09:26 DE/
--- NOTE | 2017-07-04 12:09 | PN ---
Date/Time of Note Date/Time of Note DATE: 07/04/17 TIME: 12:07 Assessment/Plan VTE Prophylaxis VTE Prophylaxis Intervention: SCD's Lines/Catheters IV [facility] Saline Lock Assessment/Plan Chief Complaint/Hosp Course Assessment and plan 1. Dyspnea secondary to CHF. Patient with elevated BNP. Echograms pending. Seen on Lasix. Appears to be improving at present. 2. Presumed AK I. Improved at present. Medications to be renally dosed. 3. Chest pain. Resolved at present. Serial troponins negative so far. Follow -up echocardiogram. Disposition plan: Follow-up on echocardiogram. The new diuretic therapy. Appears to be improving at present. Anticipate discharge within the next 24 hours if medically stable Discussed plan of care with Dr. Huerta Problems: Subjective 24 Hr Interval Summary Free Text/Dictation Denies any chest pain at present. 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, nl mental status, nl speech Results Result Diagram: 07/04/17 0657 07/04/17 0657 Results 24 hrs Laboratory Tests Test 07/03/17 13:30 07/04/17 06:57 Sodium Level 137 138 Potassium Level 3.7 3.6 Chloride Level 104 103 Carbon Dioxide Level 26 28 Anion Gap 11 11 Blood Urea Nitrogen 28 H 26 H Creatinine 1.15 1.00 Glucose Level 118 90 Calcium Level 8.3 L 8.2 L Magnesium Level 1.8 1.7 White Blood Count 9.6 Red Blood Count 6.01 Hemoglobin 13.9 L Hematocrit 43.2 Mean Corpuscular Volume 71.9 L Mean Corpuscular Hemoglobin 23.1 L Mean Corpuscular Hemoglobin Concent 32.2 Red Cell Distribution Width 13.6 Platelet Count 121 L Mean Platelet Volume 11.4 H Neutrophils % 59.8 Lymphocytes % 23.6 Monocytes % 13.4 H Eosinophils % 2.5 Basophils % 0.5 Nucleated Red Blood Cells % 0.0 Neutrophils # 5.7 Lymphocytes # 2.3 Monocytes # 1.3 H Eosinophils # 0.2 Basophils # 0.1 Nucleated Red Blood Cells # 0.0 Hemoglobin A1c 6.1 H Phosphorus Level 3.6 Total Bilirubin 1.3 Direct Bilirubin 0.00 Indirect Bilirubin 1.3 H Aspartate Amino Transf (AST/SGOT) 184 H Alanine Aminotransferase (ALT/SGPT) 471 H Alkaline Phosphatase 110 Troponin I 0.023 Total Protein 6.1 Albumin 2.9 L Globulin 3.20 Albumin/Globulin Ratio 0.90 Triglycerides Level 62 Cholesterol Level 111 LDL Cholesterol, Calculated 79 HDL Cholesterol 20 L Cholesterol/HDL Ratio 5.5 Thyroid Stimulating Hormone (TSH) 1.240 Free Thyroxine 1.49 Medications Medications Current Medications Aspirin (Halfprin) 81 mg DAILY PO Last administered on 07/04/17 08:35; Admin Dose 81 MG; Start 07/03/17 at 14:00 Furosemide (Lasix) 20 mg DAILY@06 IV Last administered on 07/04/17 05:52; Admin Dose 20 MG; Start 07/03/17 at 14:30 RENEE MILLER Jul 04, 2017 12:09
--- NOTE | 2017-07-04 13:10 | RADRPT ---
Echocardiogram Report Patient Name: CANDIDA DOBBS Gender: Male Date: 1960 Study Date: 04-Jul-2017 Senior Business Development Manager: RICHARD Location: I Ref. Physician: RENEE MILLER Quality: Good Procedures: Transthoracic echocardiogram with complete 2D, M-Mode, and doppler examination. Indications: Congestive Heart Failure. 2D/M Mode Doppler Measurement Value Normal Ranges Measurement Value Normal Ranges AoR Diam MM 3.2 cm AV Peak Jordon 0.8 m/sec ACS MM 2.0 cm AV Peak PG 2.8 mmHg LVIDd 2D 6.0 3.5 - 5.6 cm LVOT Peak Jordon 0.5 m/sec LVIDs 2D 5.3 2.1 - 4.1 cm LVOT Peak PG 1.0 mmHg LVPWd 2D 1.3 0.6 - 1.1 cm MV E Peak Jordon 0.5 m/sec IVSd 2D 1.2 0.6 - 1.1 cm MV A Peak Jordon 0.7 m/sec EDV 2D 182.6 cm3 MV E/A 0.8 ESV 2D 149.2 cm3 MV Decel Time 146 msec LA Dimen 2D 4.8 2.3 - 4.0 cm MV Decel [place] 4 MV E/A 0.8 TR Peak Jordon 2.8 m/sec TR Peak PG 30.4 mmHg PV Peak Jordon 0.8 m/sec PV Peak PG 3.0 mmHg RVSP 33.4 mmHg Findings Left Ventricle: Mild concentric left ventricular hypertrophy. Moderate enlargement of left ventricle cavity. Severe left ventricular systolic dysfunction. Ejection fraction is visually estimated at 20 %. Probable thrombus seen at the apex. Abnormal Diastolic Function. Right Ventricle: Normal right ventricular size. Mild right ventricular hypokinesis. Left Atrium: There is mild to moderate enlargement of left atrium. Right Atrium: There is mild enlargement of right atrium. Mitral Valve: Normal appearance of the mitral valve. Mild mitral valve regurgitation. Aortic Valve: Normal appearance of the aortic valve. No hemodynamically significant aortic stenosis by doppler. Trace aortic valve regurgitation. Tricuspid Valve: Normal appearance of the tricuspid valve. Estimated peak PA systolic pressure 33 mmHg. There is mild tricuspid regurgitation. Pulmonic Valve: Normal pulmonic valve appearance. There is mild to moderate pulmonic regurgitation. Pericardium: Normal pericardium with no significant pericardial effusion. No pleural effusion noted. Aorta: Normal aortic root with decreased aortic root excursion. IVC: Normal size and normal respiratory collapse consistent with normal right atrial pressure. Pulmonary Artery: Normal pulmonary artery size. Conclusions 1.Mild concentric left ventricular hypertrophy. Moderate enlargement of left ventricle cavity. Severe left ventricular systolic dysfunction. Ejection fraction is visually estimated at 20 %. Probable thrombus seen at the apex. Abnormal Diastolic Function. 2.Normal right ventricular size. Mild right ventricular hypokinesis. 3.There is mild to moderate enlargement of left atrium. 4.There is mild enlargement of right atrium. 5.Mild mitral valve regurgitation. 6.No hemodynamically significant aortic stenosis by doppler. Trace aortic valve regurgitation. 7.Estimated peak PA systolic pressure 33 mmHg. There is mild tricuspid regurgitation. 8.There is mild to moderate pulmonic regurgitation. 9.Normal pericardium with no significant pericardial effusion. Electronically Signed By: Adrian Ramirez 04-Jul-2017 13:10:14 0800 Patient Name: CANDIDA DOBBS Study Date: 04-Jul-2017 [id number]
[2017-07-04 14:24] LABS: HAAIG REFLEX REFLEX FILED
[2017-07-04 15:37] LABS: HEPATITIS B CORE ANTIBODY NEGATIVE (NEGATIVE)
[2017-07-04] MEDS ORDERED: POTASSIUM CHLORIDE (SR) 20 MEQ TAB PO STA (15:42)
--- NOTE | 2017-07-04 15:50 | CONS ---
Date/Time of Note Date/Time of Note DATE: 07/04/17 TIME: 15:45 Assessment/Plan Assessment/Plan Additional Assessment/Plan Acute decompensated systolic congestive heart failure Dilated cardiomyopathy with ejection fraction less than 20%, newly diagnosed Left ventricular thrombus History of tobacco use -Patient with evidence of dominant cardia myopathy with ejection fraction less than 20%. There is also evidence of left ventricular thrombus. Would increase diuretics to 20 mg IV twice daily, start VASHTI inhibitor, if renal function and blood pressure remained stable, would start beta-kali. Continue aspirin therapy, start statin therapy. Serial cardiac enzymes remain negative. Start Lovenox secondary to LV thrombus and will need Coumadin with goal of INR between 2-3. Findings discussed with the patient. Consultation Date/Type/Reason Admit Date/Time Jul 03, 2017 at 00:39 Type of Consultation: cv Reason for Consultation Shortness of breath Hx of Present Illness This is a 56-year-old male with no significant past medical history who presents with four-day symptoms of shortness of breath. Symptoms are worse with lying down flat and with exertion. Denies any chest pain, dizziness or lightheadedness. He does feel better since admission. Denies any fevers or chills. He did complain of a possible "cold" a few months ago but otherwise no recent illnesses. 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 Exam/Review of Systems Vital Signs Vitals Vital Signs Date Time Temp Pulse Resp B/P Pulse Ox O2 Delivery O2 Flow Rate FiO2 07/04/17 12:16 97.4 84 19 121/85 94 07/03/17 00:30 Room Air Intake and Output 07/03/17 07/03/17 07/04/17 15:00 23:00 07:00 Intake Total 800 ml 360 ml Balance 800 ml 360 ml Exam No apparent distress, no dyspnea with speaking Constitutional: alert, oriented Head: normocephalic Respiratory: other (Coarse breath sounds bilaterally, no wheezing) Cardiovascular: other (S1-S2 heard), regular rate and rhythm, systolic murmur Gastrointestinal: bowel sounds, non-tender, soft Extremities: other (No edema) Results Result Diagram: 07/04/17 0657 07/04/17 0657 Results 24 hrs Laboratory Tests Test 07/04/17 06:57 07/04/17 13:29 White Blood Count 9.6 Red Blood Count 6.01 Hemoglobin 13.9 L Hematocrit 43.2 Mean Corpuscular Volume 71.9 L Mean Corpuscular Hemoglobin 23.1 L Mean Corpuscular Hemoglobin Concent 32.2 Red Cell Distribution Width 13.6 Platelet Count 121 L Mean Platelet Volume 11.4 H Neutrophils % 59.8 Lymphocytes % 23.6 Monocytes % 13.4 H Eosinophils % 2.5 Basophils % 0.5 Nucleated Red Blood Cells % 0.0 Neutrophils # 5.7 Lymphocytes # 2.3 Monocytes # 1.3 H Eosinophils # 0.2 Basophils # 0.1 Nucleated Red Blood Cells # 0.0 Sodium Level 138 Potassium Level 3.6 Chloride Level 103 Carbon Dioxide Level 28 Anion Gap 11 Blood Urea Nitrogen 26 H Creatinine 1.00 Glucose Level 90 Hemoglobin A1c 6.1 H Calcium Level 8.2 L Phosphorus Level 3.6 Magnesium Level 1.7 Total Bilirubin 1.3 Direct Bilirubin 0.00 Indirect Bilirubin 1.3 H Aspartate Amino Transf (AST/SGOT) 184 H Alanine Aminotransferase (ALT/SGPT) 471 H Alkaline Phosphatase 110 Troponin I 0.023 Total Protein 6.1 Albumin 2.9 L Globulin 3.20 Albumin/Globulin Ratio 0.90 Triglycerides Level 62 Cholesterol Level 111 LDL Cholesterol, Calculated 79 HDL Cholesterol 20 L Cholesterol/HDL Ratio 5.5 Thyroid Stimulating Hormone (TSH) 1.240 Free Thyroxine 1.49 Hepatitis B Surface Antigen NEGATIVE Hepatitis B Core Total Antibody NEGATIVE Hepatitis C Antibody NEGATIVE Medications Medications Current Medications Aspirin (Halfprin) 81 mg DAILY PO Last administered on 07/04/17 08:35; Admin Dose 81 MG; Start 07/03/17 at 14:00 Furosemide (Lasix) 20 mg DAILY@06 IV Last administered on 07/04/17 05:52; Admin Dose 20 MG; Start 07/03/17 at 14:30 Adrian Ramirez DO Jul 04, 2017 15:50
[2017-07-04] MEDS ORDERED: MAGNESIUM SULFATE 2 GM/50 ML 50 ML IVPB ONE (16:00)
[2017-07-04] MEDS: LISINOPRIL 5 MG TAB PO SCH (16:41)
[2017-07-04] MEDS: ATORVASTATIN 20 MG TAB PO SCH (20:10)
[2017-07-04] MEDS: ENOXAPARIN 60 MG/0.6 ML SYG SC SCH (20:11)
[2017-07-05] VITALS (12 sets, daily range): BP systolic 107–127; BP diastolic 63–85; PULSE 75–91; RESP 16–19
[2017-07-05] MEDS: FUROSEMIDE 20 MG INJ IV SCH ×2 (05:49→17:21)
[2017-07-05 07:32] LABS: BASOPHIL # 0.1 10^3/ul (0.0-0.1); BASOPHILS % 0.5 % (0.0-2.0); EOSINOPHILS # 0.3 10^3/ul (0.0-0.5); HEMOGLOBIN 15.1 g/dl (14.0-18.0); LYMPHOCYTES # 2.1 10^3/ul (0.8-2.9); LYMPHOCYTES % 21.5 % (15.0-51.0); MEAN CORPUSCULAR HGB CONC 32.1 g/dl (32.0-37.0); MEAN CORPUSCULAR VOLUME 71.5 fl (82.0-101.0); MEAN PLATELET VOLUME 11.1 fl (7.4-10.4); MONOCYTE # 1.3 10^3/ul (0.3-0.9); MONOCYTES % 13.3 % (0.0-11.0); NEUTROPHIL # 6.1 10^3/ul (1.6-7.5); NEUTROPHILS % 61.5 % (39.0-77.0); PLATELET COUNT 158 10^3/UL (140-415); RED BLOOD COUNT 6.57 10^6/ul (4.70-6.10); RED CELL DISTRIBUTION WIDTH 14.2 % (11.5-14.5)
[2017-07-05 07:58] LABS: CALCIUM 8.3 mg/dl (8.4-10.2); CREATININE 1.06 mg/dl (0.61-1.24); POTASSIUM 4.1 mmol/L (3.5-5.1)
[2017-07-05 08:03] LABS: INR 1.11; PARTIAL THROMBOPLASTIN TIME 31.8 Sec (25.0-35.0); PROTIME 14.3 Sec (12.2-14.2); PT RATIO 1.1
[2017-07-05] MEDS ORDERED: REGADENOSON 0.4 MG/5 ML SYG ONE (10:32)
--- NOTE | 2017-07-05 12:55 | CONS ---
Date/Time of Note Date/Time of Note DATE: 07/05/17 TIME: 12:53 Assessment/Plan Assessment/Plan Additional Assessment/Plan Acute decompensated systolic congestive heart failure Dilated cardiomyopathy with ejection fraction less than 20%, newly diagnosed Left ventricular thrombus History of tobacco use -Blood pressure trend remains stable, start beta-blockers heart rate and blood pressure permits. Patient for Lexiscan nuclear cardiac perfusion study today. If no evidence of significant ischemia, would start Coumadin. Continue Lovenox. Consultation Date/Type/Reason Admit Date/Time Jul 03, 2017 at 09:46 Initial Consult Date Type of Consultation: cv 24 HR Interval Summary Free Text/Dictation Shortness of breath is slightly better today, denies chest pain, palpitations Exam/Review of Systems Vital Signs Vitals Vital Signs Date Time Temp Pulse Resp B/P Pulse Ox O2 Delivery O2 Flow Rate FiO2 07/05/17 12:39 91 07/05/17 07:41 98.0 19 127/85 98 07/03/17 00:30 Room Air Intake and Output 07/04/17 07/04/17 07/05/17 15:00 23:00 07:00 Intake Total 500 ml 400 ml Balance 500 ml 400 ml Exam No apparent distress Constitutional: alert, oriented Head: normocephalic Respiratory: other (Coarse breath sounds bilaterally, no wheezing) Cardiovascular: other (S1-S2 heard), regular rate and rhythm Gastrointestinal: bowel sounds, non-tender, soft Extremities: other (No edema) Results Result Diagram: 07/05/17 0703 07/05/17 0703 Results 24 hrs Laboratory Tests Test 07/04/17 13:29 07/05/17 07:03 Hepatitis B Surface Antigen NEGATIVE Hepatitis B Core Total Antibody NEGATIVE Hepatitis C Antibody NEGATIVE White Blood Count 10.0 Red Blood Count 6.57 H Hemoglobin 15.1 Hematocrit 47.0 Mean Corpuscular Volume 71.5 L Mean Corpuscular Hemoglobin 23.0 L Mean Corpuscular Hemoglobin Concent 32.1 Red Cell Distribution Width 14.2 Platelet Count 158 # Mean Platelet Volume 11.1 H Neutrophils % 61.5 Lymphocytes % 21.5 Monocytes % 13.3 H Eosinophils % 3.0 Basophils % 0.5 Nucleated Red Blood Cells % 0.0 Neutrophils # 6.1 Lymphocytes # 2.1 Monocytes # 1.3 H Eosinophils # 0.3 Basophils # 0.1 Nucleated Red Blood Cells # 0.0 Prothrombin Time 14.3 H Prothrombin Time Ratio 1.1 INR International Normalized Ratio 1.11 Activated Partial Thromboplast Time 31.8 Sodium Level 137 Potassium Level 4.1 Chloride Level 102 Carbon Dioxide Level 26 Anion Gap 13 Blood Urea Nitrogen 30 H Creatinine 1.06 Glucose Level 96 Calcium Level 8.3 L Magnesium Level 2.0 Medications Medications Current Medications Aspirin (Halfprin) 81 mg DAILY PO Last administered on 07/04/17 08:35; Admin Dose 81 MG; Start 07/03/17 at 14:00 Lisinopril (Zestril) 5 mg DAILY PO Last administered on 07/04/17 16:41; Admin Dose 5 MG; Start 07/04/17 at 16:00 Enoxaparin Sodium (Lovenox) 60 mg Q12 SC Last administered on 07/04/17 20:11 ; Admin Dose 60 MG; Start 07/04/17 at 21:00 Atorvastatin Calcium (Lipitor) 20 mg HS PO Last administered on 07/04/17 20: 10; Admin Dose 20 MG; Start 07/04/17 at 21:00 Adrian Ramirez DO Jul 05, 2017 12:55
[2017-07-05] MEDS: LISINOPRIL 5 MG TAB PO SCH (13:00)
[2017-07-05] MEDS: ASPIRIN (EC) 81 MG TAB PO SCH (13:00)
[2017-07-05] MEDS: ENOXAPARIN 60 MG/0.6 ML SYG SC SCH ×2 (13:02→20:51)
--- NOTE | 2017-07-05 13:09 | RADRPT ---
PROCEDURE: Lexiscan myocardial perfusion study CLINICAL INDICATION: 56 -year-old patient complaining of chest pain. TECHNIQUE: Lexiscan 0.4 mg intravenously separate acquisition gated myocardial perfusion SPECT usi ng Tc 99m Myoview 30.0 mCi intravenously at stress and Tc-99m Myoview, 10.0 mCi intravenously at res t was performed using the rest/stress sequence. Poststress Myoview SPECT images were obtained in th e supine position. COMPARISON: No prior studies. FINDINGS: Perfusion images reveal a moderate size moderate in degree nonreversible perfusion defect in the inf eroapical inferior and inferoseptal ghotra. There is no evidence of stress-induced ischemia. Lexiscan post stress gated SPECT images demonstrate severe hypokinesis of the dilated left ventricle . IMPRESSION: 1. The type and distribution of the scintigraphic abnormalities are most consistent with a moderate -sized nonreversible perfusion defect involving the inferoapical, inferior and basal inferoseptal wa lls. 2. Severe hypokinesis of the dilated left ventricle. 3. The left ventricle ejection fraction at stress is 11%. A call report was made to Dr. Ramirez at 01:06 p.m. on July 05, 2017. RPTAT: HH .Lindsay Carrillo MD, Date Time Electronically viewed and signed by .Lindsay Carrillo MD, MD on 07/05/2017 13:08 .L/
--- NOTE | 2017-07-05 14:31 | PN ---
Date/Time of Note Date/Time of Note DATE: 07/05/17 TIME: 14:29 Assessment/Plan VTE Prophylaxis VTE Prophylaxis Intervention: LMWH Lines/Catheters IV Catheter Type (from Nrs): Saline Lock Assessment/Plan Assessment/Plan 1. Acute decompensated systolic congestive heart failure, 2. Dilated cardiomyopathy with ejection fraction less than 20%, newly diagnosed , unclear etiology, follow up with stress thallium test 3. Left ventricular thrombus, on lovenox, will be on coumadin if no intervention needed 4. History of tobacco use Exam/Review of Systems Vital Signs Vitals Vital Signs Date Time Temp Pulse Resp B/P Pulse Ox O2 Delivery O2 Flow Rate FiO2 07/05/17 12:39 91 07/05/17 07:41 98.0 19 127/85 98 07/03/17 00:30 Room Air Intake and Output 07/04/17 07/04/17 07/05/17 14:59 22:59 06:59 Intake Total 500 ml 400 ml Balance 500 ml 400 ml Results Result Diagram: 07/05/17 0703 07/05/17 0703 Results 24 hrs Laboratory Tests Test 07/05/17 07:03 White Blood Count 10.0 Red Blood Count 6.57 H Hemoglobin 15.1 Hematocrit 47.0 Mean Corpuscular Volume 71.5 L Mean Corpuscular Hemoglobin 23.0 L Mean Corpuscular Hemoglobin Concent 32.1 Red Cell Distribution Width 14.2 Platelet Count 158 # Mean Platelet Volume 11.1 H Neutrophils % 61.5 Lymphocytes % 21.5 Monocytes % 13.3 H Eosinophils % 3.0 Basophils % 0.5 Nucleated Red Blood Cells % 0.0 Neutrophils # 6.1 Lymphocytes # 2.1 Monocytes # 1.3 H Eosinophils # 0.3 Basophils # 0.1 Nucleated Red Blood Cells # 0.0 Prothrombin Time 14.3 H Prothrombin Time Ratio 1.1 INR International Normalized Ratio 1.11 Activated Partial Thromboplast Time 31.8 Sodium Level 137 Potassium Level 4.1 Chloride Level 102 Carbon Dioxide Level 26 Anion Gap 13 Blood Urea Nitrogen 30 H Creatinine 1.06 Glucose Level 96 Calcium Level 8.3 L Magnesium Level 2.0 Medications Medications Current Medications Aspirin (Halfprin) 81 mg DAILY PO Last administered on 07/05/17t 13:00; Admin Dose 81 MG; Start 07/03/17 at 14:00 Lisinopril (Zestril) 5 mg DAILY PO Last administered on 07/05/17 13:00; Admin Dose 5 MG; Start 07/04/17 at 16:00 Enoxaparin Sodium (Lovenox) 60 mg Q12 SC Last administered on 07/05/17 13:02 ; Admin Dose 60 MG; Start 07/04/17 at 21:00 Atorvastatin Calcium (Lipitor) 20 mg HS PO Last administered on 07/04/17 20: 10; Admin Dose 20 MG; Start 07/04/17 at 21:00 Carvedilol (Coreg) 3.125 mg BID PO ; Start 07/05/17 at 21:00 RADHA VALENTIN MD Jul 05, 2017 14:31
--- NOTE | 2017-07-05 16:12 | EN ---
Date/Time of Note Date/Time of Note DATE: 07/05/17 TIME: 16:09 Event Note Cardiology Cardiology Event Note Della scan ECG report 07/05/17 56 y/o male with severe cardiomyopathy Baseline ECG sr @ 82bpm, LVH, diffuse ST-T wave abnormalities Baseline BP 131/87 Lexiscan administered as per protocol Symptoms none Peak HR 99 Peak blood pressure 133/88 ECG no significant changes ECG interpretation un-interpretable secondary to baseline ECG abnormalities Adrian Ramirez DO Jul 05, 2017 16:12
[2017-07-05] MEDS ORDERED: WARFARIN 7.5 MG TAB PO ONE (16:30)
[2017-07-05] MEDS: ATORVASTATIN 20 MG TAB PO SCH (20:46)
[2017-07-06] VITALS (12 sets, daily range): BP systolic 94–114; BP diastolic 62–74; PULSE 80–95; RESP 16–19
[2017-07-06 02:44] LABS: BARBITURATES Negative (NEGATIVE); BENZODIAZEPINES Negative (NEGATIVE); CANNABINOIDS Negative (NEGATIVE); COCAINE Negative (NEGATIVE); OPIATES Negative (NEGATIVE)
[2017-07-06] MEDS: FUROSEMIDE 20 MG INJ IV SCH ×2 (06:10→17:16)
[2017-07-06 08:26] LABS: INR 1.14; PROTIME 14.6 Sec (12.2-14.2); PT RATIO 1.1
[2017-07-06 08:30] LABS: CALCIUM 8.6 mg/dl (8.4-10.2); CREATININE 1.08 mg/dl (0.61-1.24); POTASSIUM 4.3 mmol/L (3.5-5.1)
[2017-07-06] MEDS: ASPIRIN (EC) 81 MG TAB PO SCH (09:47)
[2017-07-06] MEDS: LISINOPRIL 5 MG TAB PO SCH (09:48)
[2017-07-06] MEDS: ENOXAPARIN 60 MG/0.6 ML SYG SC SCH ×2 (09:51→21:07)
--- NOTE | 2017-07-06 14:37 | PN ---
Date/Time of Note Date/Time of Note DATE: 07/06/17 TIME: 14:34 Assessment/Plan VTE Prophylaxis VTE Prophylaxis Intervention: other Lines/Catheters IV Catheter Type (from Nrsg): Saline Lock Assessment/Plan Assessment/Plan 1. Acute decompensated systolic congestive heart failure, symptoms improved 2. Dilated cardiomyopathy with ejection fraction less than 20%, newly diagnosed , unclear etiology, follow up with cardiology 3. Left ventricular thrombus, on coumadin, follow up with INR 4. History of tobacco use Subjective 24 Hr Interval Summary Free Text/Dictation no shortness of breath or chest pain Exam/Review of Systems Vital Signs Vitals Vital Signs Date Time Temp Pulse Resp B/P Pulse Ox O2 Delivery O2 Flow Rate FiO2 07/06/17 12:00 82 07/06/17 11:48 98.0 16 106/64 96 07/03/17 00:30 Room Air Intake and Output 07/05/17 07/05/17 07/06/17 15:00 23:00 07:00 Intake Total 720 ml 800 ml Output Total 400 ml Balance 720 ml 400 ml Exam Constitutional: alert, oriented, well developed Psych: nl mood/affect, no complaints Head: atraumatic, normocephalic Eyes: EOMI, PERRL, nl conjunctiva, nl lids, nl sclera ENMT: nl external ears & nose, nl lips & teeth, nl nasal mucosa & septum Neck: non-tender, supple Respiratory: clear to auscultation, normal air movement, No congested cough, No crackles/rales, No diminished breath sounds, No intercostal retraction, No labored breathing, No other, No respirations, No tactile fremitus, No wheezing Cardiovascular: nl pulses, regular rate and rhythm Gastrointestinal: nl liver, spleen, non-tender, soft Musculoskeletal: nl extremities to inspection Extremities: normal pulses, No calf tenderness, No clubbing, No cyanosis, No edema, No other, No palpable cord, No pitting pedal edema, No tenderness Neurological: [employer]IST II-XII intact, nl mental status, nl speech, nl strength Skin: nl turgor Lymph: nl lymph nodes Results Result Diagram: 07/05/17 0703 07/06/17 0746 Results 24 hrs Laboratory Tests Test 07/06/17 02:00 07/06/17 07:46 Urine Opiates Screen Negative Urine Barbiturates Negative Urine Amphetamines Screen Negative Urine Benzodiazepines Screen Negative Urine Cocaine Screen Negative Urine Cannabinoids Negative Prothrombin Time 14.6 H Prothrombin Time Ratio 1.1 INR International Normalized Ratio 1.14 Sodium Level 138 Potassium Level 4.3 Chloride Level 105 Carbon Dioxide Level 25 Anion Gap 12 Blood Urea Nitrogen 42 #H Creatinine 1.08 Glucose Level 107 Calcium Level 8.6 Magnesium Level 1.9 Medications Medications Current Medications Aspirin (Halfprin) 81 mg DAILY PO Last administered on 07/06/17 09:47; Admin Dose 81 MG; Start 07/03/17 at 14:00 Lisinopril (Zestril) 5 mg DAILY PO Last administered on 07/06/17 09:48; Admin Dose 5 MG; Start 07/04/17 at 16:00 Enoxaparin Sodium (Lovenox) 60 mg Q12 SC Last administered on 07/06/17 09:51 ; Admin Dose 60 MG; Start 07/04/17 at 21:00 Atorvastatin Calcium (Lipitor) 20 mg HS PO Last administered on 07/05/17 20: 46; Admin Dose 20 MG; Start 07/04/17 at 21:00 Carvedilol (Coreg) 3.125 mg BID PO Last administered on 07/06/17 09:47; Admin Dose 3.125 MG; Start 07/05/17 at 21:00 Warfarin Sodium (Coumadin) 5 mg DAILY@17 PO ; Start 07/06/17 at 17:00 RADHA VALENTIN MD Jul 06, 2017 14:36
[2017-07-06] MEDS: WARFARIN 5 MG TAB PO SCH (17:12)
[2017-07-06] MEDS: ATORVASTATIN 20 MG TAB PO SCH (21:04)
[2017-07-07] VITALS (11 sets, daily range): BP systolic 97–120; BP diastolic 54–75; PULSE 65–83; RESP 16–19
[2017-07-07] MEDS: FUROSEMIDE 20 MG INJ IV SCH (05:50)
[2017-07-07 07:55] LABS: INR 1.53; PROTIME 18.5 Sec (12.2-14.2); PT RATIO 1.4
[2017-07-07] MEDS: ASPIRIN (EC) 81 MG TAB PO SCH (08:47)
[2017-07-07] MEDS: LISINOPRIL 5 MG TAB PO SCH (08:48)
[2017-07-07] MEDS: ENOXAPARIN 60 MG/0.6 ML SYG SC SCH ×2 (08:57→21:16)
--- NOTE | 2017-07-07 12:51 | CONS ---
Date/Time of Note Date/Time of Note DATE: 07/07/17 TIME: 12:50 Assessment/Plan Assessment/Plan Additional Assessment/Plan Acute decompensated systolic congestive heart failure, improved Dilated cardiomyopathy with ejection fraction less than 20%, newly diagnosed Lexiscan nuclear perfusion study 07/05/2017 infarct no ischemia Left ventricular thrombus History of tobacco use -Nuclear cardiac perfusion study with infarct, no evidence of ischemia. Continue Coumadin with goal of INR between 2-3 given LV thrombus. DC Lasix given borderline blood pressure and appears near euvolemic. Continue beta- blockers heart rate and blood pressure permits, continue VASHTI inhibitor as renal function and blood pressure permits. Ideally, maintain patient's potassium above 4.0 and magnesium above 2.0 Consultation Date/Type/Reason Admit Date/Time Jul 03, 2017 at 09:46 Type of Consultation: cv 24 HR Interval Summary Free Text/Dictation Denies shortness of breath, chest pain or palpitations Exam/Review of Systems Vital Signs Vitals Vital Signs Date Time Temp Pulse Resp B/P Pulse Ox O2 Delivery O2 Flow Rate FiO2 07/07/17 12:15 83 07/07/17 11:47 97.9 18 97/57 95 Intake and Output 07/06/17 07/06/17 07/07/17 15:00 23:00 07:00 Intake Total 880 ml 600 ml Balance 880 ml 600 ml Exam No apparent distress Constitutional: alert, oriented Head: normocephalic Respiratory: other (Coarse breath sounds bilaterally, no wheezing) Cardiovascular: other (S1-S2 heard), regular rate and rhythm Gastrointestinal: bowel sounds, non-tender, soft Extremities: other (No edema) Results Result Diagram: 07/05/17 0703 07/06/17 0746 Results 24 hrs Laboratory Tests Test 07/07/17 06:35 Prothrombin Time 18.5 #H Prothrombin Time Ratio 1.4 INR International Normalized Ratio 1.53 Medications Medications Current Medications Aspirin (Halfprin) 81 mg DAILY PO Last administered on 07/07/17 08:47; Admin Dose 81 MG; Start 07/03/17 at 14:00 Lisinopril (Zestril) 5 mg DAILY PO Last administered on 07/07/17 08:48; Admin Dose 5 MG; Start 07/04/17 at 16:00 Enoxaparin Sodium (Lovenox) 60 mg Q12 SC Last administered on 07/07/17 08:57 ; Admin Dose 60 MG; Start 07/04/17 at 21:00 Atorvastatin Calcium (Lipitor) 20 mg HS PO Last administered on 07/06/17 21: 04; Admin Dose 20 MG; Start 07/04/17 at 21:00 Carvedilol (Coreg) 3.125 mg BID PO Last administered on 07/07/17 08:48; Admin Dose 3.125 MG; Start 07/05/17 at 21:00 Warfarin Sodium (Coumadin) 5 mg DAILY@17 PO Last administered on 07/06/17 17: 12; Admin Dose 5 MG; Start 07/06/17 at 17:00 Adrian Ramirez DO Jul 07, 2017 12:51
[2017-07-07] MEDS ORDERED: MAGNESIUM SULFATE 2 GM/50 ML 50 ML IVPB ONE (13:00)
--- NOTE | 2017-07-07 14:39 | PN ---
Date/Time of Note Date/Time of Note DATE: 07/07/17 TIME: 14:36 Assessment/Plan VTE Prophylaxis VTE Prophylaxis Intervention: other Lines/Catheters IV Catheter Type (from Nrsg): Saline Lock Assessment/Plan Assessment/Plan 1. Left ventricular thrombus, on coumadin, awaiting for INR to reach to therapeutic 2. Acute decompensated systolic congestive heart failure, symptoms improved, decrease lisinopril and stop lasix for hypotension 3. Dilated cardiomyopathy with ejection fraction less than 20%, newly diagnosed , stress test with infarct but no ischemia 4. History of tobacco use Subjective 24 Hr Interval Summary Free Text/Dictation asymptomatic, no dizziness Exam/Review of Systems Vital Signs Vitals Vital Signs Date Time Temp Pulse Resp B/P Pulse Ox O2 Delivery O2 Flow Rate FiO2 07/07/17 12:15 83 07/07/17 11:47 97.9 18 97/57 95 Intake and Output 07/06/17 07/06/17 07/07/17 15:00 23:00 07:00 Intake Total 880 ml 600 ml Balance 880 ml 600 ml Exam Constitutional: alert, oriented, well developed Psych: nl mood/affect, no complaints Head: atraumatic, normocephalic Eyes: EOMI, PERRL, nl conjunctiva, nl lids, nl sclera ENMT: mucosa pink and moist, nl external ears & nose, nl lips & teeth, nl nasal mucosa & septum Neck: non-tender, supple Respiratory: clear to auscultation, normal air movement, No congested cough, No crackles/rales, No diminished breath sounds, No intercostal retraction, No labored breathing, No other, No respirations, No tactile fremitus, No wheezing Cardiovascular: nl pulses, regular rate and rhythm, No S3, No S4, No bruits, No diastolic murmur, No edema, No gallop, No irregular rhythm, No jugular venous distention (JVD), No murmurs/extra sounds, No other, No rub, No systolic murmur Gastrointestinal: nl liver, spleen, non-tender, soft Musculoskeletal: nl extremities to inspection Extremities: normal pulses, No calf tenderness, No clubbing, No cyanosis, No edema, No other, No palpable cord, No pitting pedal edema, No tenderness 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, nl mental status, nl speech, nl strength Skin: nl turgor Lymph: nl lymph nodes Results Result Diagram: 07/05/17 0703 07/06/17 0746 Results 24 hrs Laboratory Tests Test 07/07/17 06:35 Prothrombin Time 18.5 #H Prothrombin Time Ratio 1.4 INR International Normalized Ratio 1.53 Medications Medications Current Medications Aspirin (Halfprin) 81 mg DAILY PO Last administered on 07/07/17 08:47; Admin Dose 81 MG; Start 07/03/17 at 14:00 Lisinopril (Zestril) 5 mg DAILY PO Last administered on 07/07/17 08:48; Admin Dose 5 MG; Start 07/04/17 at 16:00 Enoxaparin Sodium (Lovenox) 60 mg Q12 SC Last administered on 07/07/17 08:57 ; Admin Dose 60 MG; Start 07/04/17 at 21:00 Atorvastatin Calcium (Lipitor) 20 mg HS PO Last administered on 07/06/17 21: 04; Admin Dose 20 MG; Start 07/04/17 at 21:00 Carvedilol (Coreg) 3.125 mg BID PO Last administered on 07/07/17 08:48; Admin Dose 3.125 MG; Start 07/05/17 at 21:00 Warfarin Sodium 5 mg 5 mg DAILY@17 PO Last administered on 07/06/17 17:12; Admin Dose 5 MG; Start 07/06/17 at 17:00 Magnesium Sulfate (Magnesium Sulfate 2 Gm/50 ml) 50 ml @ 25 mls/hr ONCE ONCE IVPB ; Start 07/07/17 at 13:00; Stop 07/07/17 at 14:59 RADHA VALENTIN MD Jul 07, 2017 14:39
[2017-07-07] MEDS: WARFARIN 5 MG TAB PO SCH (16:59)
[2017-07-07] MEDS: ATORVASTATIN 20 MG TAB PO SCH (21:09)
[2017-07-08] VITALS (13 sets, daily range): BP systolic 101–116; BP diastolic 56–76; PULSE 73–93; RESP 19–20
[2017-07-08 06:54] LABS: INR 2.05; PROTIME 23.3 Sec (12.2-14.2); PT RATIO 1.8
[2017-07-08 06:59] LABS: CALCIUM 8.3 mg/dl (8.4-10.2); CREATININE 0.98 mg/dl (0.61-1.24); POTASSIUM 4.6 mmol/L (3.5-5.1)
[2017-07-08] MEDS: ASPIRIN (EC) 81 MG TAB PO SCH (09:17)
[2017-07-08] MEDS: LISINOPRIL 5 MG TAB PO SCH (09:18)
[2017-07-08] MEDS: ENOXAPARIN 60 MG/0.6 ML SYG SC SCH (09:25)
--- NOTE | 2017-07-08 14:36 | PN ---
Date/Time of Note Date/Time of Note DATE: 07/08/17 TIME: 14:32 Assessment/Plan VTE Prophylaxis VTE Prophylaxis Intervention: other Lines/Catheters IV Catheter Type (from Nrs): Saline Lock Assessment/Plan Assessment/Plan 1. Left ventricular thrombus, on coumadin, INR is 2.05, stop lovenox today, home tomorrow if INR is ok 2. Acute decompensated systolic congestive heart failure, symptoms improved, decrease lisinopril and stop lasix for hypotension 3. Dilated cardiomyopathy with ejection fraction less than 20%, newly diagnosed , stress test with infarct but no ischemia 4. History of tobacco use Subjective 24 Hr Interval Summary Free Text/Dictation no shortness of breath or chest pain. Exam/Review of Systems Vital Signs Vitals Vital Signs Date Time Temp Pulse Resp B/P Pulse Ox O2 Delivery O2 Flow Rate FiO2 07/08/17 12:15 73 07/08/17 11:57 98.3 19 114/76 98 Intake and Output 07/07/17 07/07/17 07/08/17 14:59 22:59 06:59 Intake Total 1080 ml 200 ml Balance 1080 ml 200 ml Exam Constitutional: alert, oriented, well developed Psych: nl mood/affect, no complaints Head: atraumatic, normocephalic Eyes: EOMI, PERRL, nl conjunctiva, nl lids, nl sclera ENMT: nl external ears & nose, nl lips & teeth, nl nasal mucosa & septum Neck: non-tender, supple Respiratory: clear to auscultation, normal air movement, No congested cough, No crackles/rales, No diminished breath sounds, No intercostal retraction, No labored breathing, No other, No respirations, No tactile fremitus, No wheezing Cardiovascular: nl pulses, regular rate and rhythm, No S3, No S4, No bruits, No diastolic murmur, No edema, No gallop, No irregular rhythm, No jugular venous distention (JVD), No murmurs/extra sounds, No other, No rub, No systolic murmur Gastrointestinal: nl liver, spleen, non-tender, soft Musculoskeletal: nl extremities to inspection Extremities: normal pulses, No calf tenderness, No clubbing, No cyanosis, No edema, No other, No palpable cord, No pitting pedal edema, No tenderness 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, nl mental status, nl speech, nl strength Skin: nl turgor Lymph: nl lymph nodes Results Result Diagram: 07/05/17 0703 07/08/17 0532 Results 24 hrs Laboratory Tests Test 07/08/17 05:32 Prothrombin Time 23.3 #H Prothrombin Time Ratio 1.8 INR International Normalized Ratio 2.05 Sodium Level 138 Potassium Level 4.6 Chloride Level 105 Carbon Dioxide Level 24 Anion Gap 14 Blood Urea Nitrogen 42 H Creatinine 0.98 Glucose Level 106 Calcium Level 8.3 L Magnesium Level 2.1 Medications Medications Current Medications Aspirin (Halfprin) 81 mg DAILY PO Last administered on 07/08/17 09:17; Admin Dose 81 MG; Start 07/03/17 at 14:00 Atorvastatin Calcium (Lipitor) 20 mg HS PO Last administered on 07/07/17 21: 09; Admin Dose 20 MG; Start 07/04/17 at 21:00 Carvedilol (Coreg) 3.125 mg BID PO Last administered on 07/08/17 09:18; Admin Dose 3.125 MG; Start 07/05/17 at 21:00 Lisinopril (Zestril) 2.5 mg DAILY PO Last administered on 07/08/17 09:18; Admin Dose 2.5 MG; Start 07/08/17 at 09:00 Warfarin Sodium (Coumadin) 2 mg DAILY@17 PO ; Start 07/08/17 at 17:00 RADHA VALENTIN MD Jul 08, 2017 14:36
[2017-07-08] MEDS: WARFARIN 2 MG TAB PO SCH (17:42)
--- NOTE | 2017-07-08 18:31 | PN ---
Date/Time of Note Date/Time of Note DATE: 07/08/17 TIME: 18:29 Assessment/Plan VTE Prophylaxis VTE Prophylaxis Intervention: SCD's Lines/Catheters IV Catheter Type (from Nrs): Saline Lock Assessment/Plan Assessment/Plan Acute decompensated systolic congestive heart failure, improved Dilated cardiomyopathy with ejection fraction less than 20%, newly diagnosed Lexiscan nuclear perfusion study 07/05/2017 infarct no ischemia Left ventricular thrombus History of tobacco use -Nuclear cardiac perfusion study with infarct, no evidence of ischemia. Continue Coumadin with goal of INR between 2-3 given LV thrombus.. Continue beta-blockers heart rate and blood pressure permits, continue VASHTI inhibitor as renal function and blood pressure permits. Ideally, maintain patient's potassium above 4.0 and magnesium above 2.0 -rx po lasix low dose before discharge if ok with renal Subjective 24 Hr Interval Summary Free Text/Dictation The patient stabel overnight Exam/Review of Systems Vital Signs Vitals Vital Signs Date Time Temp Pulse Resp B/P Pulse Ox O2 Delivery O2 Flow Rate FiO2 07/08/17 16:11 85 07/08/17 16:05 98.3 19 111/70 97 Intake and Output 07/07/17 07/07/17 07/08/17 15:00 23:00 07:00 Intake Total 1080 ml 200 ml Balance 1080 ml 200 ml Results Result Diagram: 07/05/17 0703 07/08/17 0532 Results 24 hrs Laboratory Tests Test 07/08/17 05:32 Prothrombin Time 23.3 #H Prothrombin Time Ratio 1.8 INR International Normalized Ratio 2.05 Sodium Level 138 Potassium Level 4.6 Chloride Level 105 Carbon Dioxide Level 24 Anion Gap 14 Blood Urea Nitrogen 42 H Creatinine 0.98 Glucose Level 106 Calcium Level 8.3 L Magnesium Level 2.1 Medications Medications Current Medications Aspirin (Halfprin) 81 mg DAILY PO Last administered on 07/08/17 09:17; Admin Dose 81 MG; Start 07/03/17 at 14:00 Atorvastatin Calcium (Lipitor) 20 mg HS PO Last administered on 07/07/17 21: 09; Admin Dose 20 MG; Start 07/04/17 at 21:00 Carvedilol (Coreg) 3.125 mg BID PO Last administered on 07/08/17 09:18; Admin Dose 3.125 MG; Start 07/05/17 at 21:00 Lisinopril (Zestril) 2.5 mg DAILY PO Last administered on 07/08/17 09:18; Admin Dose 2.5 MG; Start 07/08/17 at 09:00 Warfarin Sodium (Coumadin) 2 mg DAILY@17 PO Last administered on 07/08/17 17: 42; Admin Dose 2 MG; Start 07/08/17 at 17:00 SUNNY ARGUETA MD Jul 08, 2017 18:31
[2017-07-08] MEDS: ATORVASTATIN 20 MG TAB PO SCH (21:19)
[2017-07-09] VITALS (9 sets, daily range): BP systolic 106–121; BP diastolic 69–75; PULSE 74–86; RESP 19–20
[2017-07-09 07:48] LABS: INR 2.19; PROTIME 24.6 Sec (12.2-14.2); PT RATIO 1.9
--- NOTE | 2017-07-09 13:06 | PN ---
Date/Time of Note Date/Time of Note DATE: 07/09/17 TIME: 13:05 Assessment/Plan VTE Prophylaxis VTE Prophylaxis Intervention: SCD's Lines/Catheters IV C[facility]ter Type (from [facility] Saline Lock Urinary Cath still in place: No Assessment/Plan Assessment/Plan Acute decompensated systolic congestive heart failure, improved Dilated cardiomyopathy with ejection fraction less than 20%, newly diagnosed Lexiscan nuclear perfusion study 07/05/2017 infarct no ischemia Left ventricular thrombus History of tobacco use -Nuclear cardiac perfusion study with infarct, no evidence of ischemia. Continue Coumadin with goal of INR between 2-3 given LV thrombus.. Continue beta-blockers heart rate and blood pressure permits, continue VASHTI inhibitor as renal function and blood pressure permits. Ideally, maintain patient's potassium above 4.0 and magnesium above 2.0 -rx po lasix low dose before discharge if ok with renal Subjective 24 Hr Interval Summary Free Text/Dictation The aptient with no cahnge Exam/Review of Systems Vital Signs Vitals Vital Signs Date Time Temp Pulse Resp B/P Pulse Ox O2 Delivery O2 Flow Rate FiO2 07/09/17 12:33 74 07/09/17 12:01 98.1 19 113/70 99 Intake and Output 07/08/17 07/08/17 07/09/17 14:59 22:59 06:59 Intake Total 600 ml Balance 600 ml Results Result Diagram: 07/05/17 0703 07/08/17 0532 Results 24 hrs Laboratory Tests Test 07/09/17 07:02 Prothrombin Time 24.6 H Prothrombin Time Ratio 1.9 INR International Normalized Ratio 2.19 Medications Medications Current Medications Aspirin (Halfprin) 81 mg DAILY PO Last administered on 07/08/17 09:17; Admin Dose 81 MG; Start 07/03/17 at 14:00 Atorvastatin Calcium (Lipitor) 20 mg HS PO Last administered on 07/08/17 21: 19; Admin Dose 20 MG; Start 07/04/17 at 21:00 Carvedilol (Coreg) 3.125 mg BID PO Last administered on 07/08/17 21:21; Admin Dose 3.125 MG; Start 07/05/17 at 21:00 Lisinopril (Zestril) 2.5 mg DAILY PO Last administered on 07/08/17 09:18; Admin Dose 2.5 MG; Start 07/08/17 at 09:00 Warfarin Sodium (Coumadin) 2 mg DAILY@17 PO Last administered on 07/08/17t 17: 42; Admin Dose 2 MG; Start 07/08/17 at 17:00 SUNNY ARGUETA MD Jul 09, 2017 13:06
[2017-07-09] MEDS: ASPIRIN (EC) 81 MG TAB PO SCH (13:17)
[2017-07-09] MEDS: LISINOPRIL 5 MG TAB PO SCH (13:18)
[2017-07-09] MEDS ORDERED: ATOR20TA65 PO (14:10)
[2017-07-09] MEDS ORDERED: COU2 PO (14:10)
[2017-07-09] MEDS ORDERED: CARV3.1260 PO (14:10)
[2017-07-09] MEDS ORDERED: LISI-313 PO (14:10)
[2017-07-09] MEDS ORDERED: ASPI-664 PO (14:11)
--- NOTE | 2017-07-09 14:24 | DS ---
Date/Time of Note Date/Time of Note DATE: 07/09/17 TIME: 14:13 Discharge Summary Admission/Discharge Info Admit Date/Time Jul 03, 2017 at 09:46 Discharge Date/Time Discharge Diagnosis 1. Left ventricular thrombus, on coumadin, follow up with PCP and cardiology for INR to keep INR 2-3 2. Acute decompensated systolic congestive heart failure, symptoms improved, follow up with cardiology 3. Dilated cardiomyopathy with ejection fraction less than 20%, newly diagnosed , stress test with infarct but no ischemia 4. History of tobacco use Patient Condition: Stable Procedures PROCEDURE: Lexiscan myocardial perfusion study CLINICAL INDICATION: 56 -year-old patient complaining of chest pain. TECHNIQUE: Lexiscan 0.4 mg intravenously separate acquisition gated myocardial perfusion SPECT using Tc 99m Myoview 30.0 mCi intravenously at stress and Tc-99m Myoview, 10.0 mCi intravenously at rest was performed using the rest/stress sequence. Poststress Myoview SPECT images were obtained in the supine position. COMPARISON: No prior studies. FINDINGS: Perfusion images reveal a moderate size moderate in degree nonreversible perfusion defect in the inferoapical inferior and inferoseptal ghotra. There is no evidence of stress-induced ischemia. Lexiscan post stress gated SPECT images demonstrate severe hypokinesis of the dilated left ventricle. IMPRESSION: 1. The type and distribution of the scintigraphic abnormalities are most consistent with a moderate-sized nonreversible perfusion defect involving the inferoapical, inferior and basal inferoseptal ghotra. 2. Severe hypokinesis of the dilated left ventricle. 3. The left ventricle ejection fraction at stress is 11%. A call report was made to Dr. Ramirez at 01:06 p.m. on July 05, 2017. RPTAT: HH .Lindsay Carrillo MD, Date Time Electronically viewed and signed by .Lindsay Carrillo MD, on 07/05/2017 13:08 Echocardiogram Report Patient Name: CANDIDA DOBBS Gender: Male Date: 1960 Study Date: 04-Jul-2017 Locker Attendant: RICHARD Location: I Ref. Physician: RENEE MILLER Quality: Good Procedures: Transthoracic echocardiogram with complete 2D, M-Mode, and doppler examination. Indications: Congestive Heart Failure. 2D/M Mode Doppler Measurement Value Normal Ranges Measurement Value Normal Ranges AoR Diam MM 3.2 cm AV Peak Jordon 0.8 m/sec ACS MM 2.0 cm AV Peak PG 2.8 mmHg LVIDd 2D 6.0 3.5 - 5.6 cm LVOT Peak Jordon 0.5 m/sec LVIDs 2D 5.3 2.1 - 4.1 cm LVOT Peak PG 1.0 mmHg LVPWd 2D 1.3 0.6 - 1.1 cm MV E Peak Jordon 0.5 m/sec IVSd 2D 1.2 0.6 - 1.1 cm MV A Peak Jordon 0.7 m/sec EDV 2D 182.6 cm3 MV E/A 0.8 ESV 2D 149.2 cm3 MV Decel Time 146 msec LA Dimen 2D 4.8 2.3 - 4.0 cm MV Decel [place] 4 MV E/A 0.8 TR Peak Jordon 2.8 m/sec TR Peak PG 30.4 mmHg PV Peak Jordon 0.8 m/sec PV Peak PG 3.0 mmHg RVSP 33.4 mmHg Findings Left Ventricle: Mild concentric left ventricular hypertrophy. Moderate enlargement of left ventricle cavity. Severe left ventricular systolic dysfunction. Ejection fraction is visually estimated at 20 %. Probable thrombus seen at the apex. Abnormal Diastolic Function. Right Ventricle: Normal right ventricular size. Mild right ventricular hypokinesis. Left Atrium: There is mild to moderate enlargement of left atrium. Right Atrium: There is mild enlargement of right atrium. Mitral Valve: Normal appearance of the mitral valve. Mild mitral valve regurgitation. Aortic Valve: Normal appearance of the aortic valve. No hemodynamically significant aortic stenosis by doppler. Trace aortic valve regurgitation. Tricuspid Valve: Normal appearance of the tricuspid valve. Estimated peak PA systolic pressure 33 mmHg. There is mild tricuspid regurgitation. Pulmonic Valve: Normal pulmonic valve appearance. There is mild to moderate pulmonic regurgitation. Pericardium: Normal pericardium with no significant pericardial effusion. No pleural effusion noted. Aorta: Normal aortic root with decreased aortic root excursion. IVC: Normal size and normal respiratory collapse consistent with normal right atrial pressure. Pulmonary Artery: Normal pulmonary artery size. Conclusions 1. Mild concentric left ventricular hypertrophy. Moderate enlargement of left ventricle cavity. Severe left ventricular systolic dysfunction. Ejection fraction is visually estimated at 20 %. Probable thrombus seen at the apex. Abnormal Diastolic Function. 2. Normal right ventricular size. Mild right ventricular hypokinesis. 3. There is mild to moderate enlargement of left atrium. 4. There is mild enlargement of right atrium. 5. Mild mitral valve regurgitation. 6. No hemodynamically significant aortic stenosis by doppler. Trace aortic valve regurgitation. 7. Estimated peak PA systolic pressure 33 mmHg. There is mild tricuspid regurgitation. 8. There is mild to moderate pulmonic regurgitation. 9. Normal pericardium with no significant pericardial effusion. Electronically Signed By: Adrian Ramirez 04-Jul-2017 13:10: Patient Name: CANDIDA DOBBS Study Date: 04-Jul-2017 Hx of Present Illness Hospital Course This is a 56-year-old male with no past medical history who presented to the emergency department complaining of shortness of breath and chest pain. He stated shortness of breath started a few days ago and a chest pain which was left-sided started yesterday. Both symptoms have resolved now. Chest pain was described as sharp, nonradiating with no associated nausea vomiting or diaphoresis. Echocardiography6 with LVEF 20%. Stress thallium test with a fixed defect but no ischemia. Patient is on coreg, lisinopril and aspirin. shortness of breath resolved. No chest pain. There is a thrombus at apex on echo that he is on coumadin. INR is 2.19 today. He will be on coumadin 2 mg po daily and follow up with PCP for INR to adjust coumadin dosage to keep INR 2-3. On admission, BUN/Cr 31/1.25, improve to 42/0.98 on 07/08/2017. Home Meds Active Scripts Aspirin* (Aspirin* EC) 81 Mg Tablet.dr, 81 MG PO DAILY for 30 Days Prov:RADHA VALENTIN MD 07/09/17 Lisinopril* (Lisinopril*) 5 Mg Tablet, 2.5 MG PO DAILY for 30 Days, TAB Prov:RADHA VALENTIN MD 07/09/17 Carvedilol* (Carvedilol*) 3.125 Mg Tablet, 3.125 MG PO BID for 30 Days, TAB Prov:RADHA VALENTIN MD 07/09/17 Atorvastatin Calcium (Atorvastatin Calcium) 20 Mg Tablet, 20 MG PO HS for 30 Days, TAB Prov:RADHA VALENTIN MD 07/09/17 Warfarin Sod (Coumadin) 2 Mg Tab, 2 MG PO DAILY@17 for 30 Days, TAB Prov:RADHA VALENTIN MD 07/09/17 Discontinued Scripts Famotidine* (Pepcid*) 20 Mg Tablet, 20 MG PO BID, #60 TAB Prov:CORDELIA ALATORRE MD 06/24/17 Metoclopramide* (Reglan*) 10 Mg Tablet, 10 MG PO Q6H Y for NAUSEA AND OR VOMITING, #30 TAB Prov:CORDELIA ALATORRE MD 06/24/17 Ibuprofen* (Ibuprofen*) 600 Mg Tablet, 600 MG PO Q6 for pain, fever, #30 TAB Prov:CORDELIA ALATORRE MD 06/24/17 Follow-up Plan PCP in 2 days to check INR on Wednesday cardiology in one week Primary Care Provider Not On Staff Doctor Pending Labs Laboratory Tests Test 07/09/17 07:02 Prothrombin Time 24.6Sec (12.2-14.2) Prothrombin Time Ratio 1.9 INR International Normalized Ratio 2.19 RADHA VALENTIN MD Jul 09, 2017 14:24
[2017-07-09] MEDS: WARFARIN 2 MG TAB PO SCH (16:26)
== END 2017-07-09 19:00 | disposition home or self-care (01) | DRG 292 ==
LOC: E/R 21:24 → MS4 07-03 00:39 → OBSVTOIN 07-03 09:46
PROVIDERS: ADMIT Internal Medicine; ATTEND Internal Medicine
DX: I50.23 Acute on chronic systolic (congestive) heart failure (principal); I42.0 Dilated cardiomyopathy; N17.9 Acute kidney failure, unspecified; I51.3 Intracardiac thrombosis, not elsewhere classified; R07.9 Chest pain, unspecified; Z72.0 Tobacco use
CPT/HCPCS: 36415; 71010; 78452; 80048; 80053; 80061; 80307; 82550; 82553; 83036; 83735; 83880; 84100; 84439; 84443; 84484; 85025; 85610; 85730; 86704; 86709; 86803; 87340; 93005; 93017; 93306; 96374; G0378; J1940; A9500; A9505; J2785; J3475